=== PATIENT | male | born 1945 | race Caucasian/White ===

== ENCOUNTER → 2023-01-14 | Outpatient (CLI) | payer MEDICARE, OTHER | END | disposition home or self-care (01) | LOC: RESCLI 08:33 | PROVIDERS: ATTEND Family Medicine | DX: G44.1 Vascular headache, not elsewhere classified (principal); I63.9 Cerebral infarction, unspecified; M54.12 Radiculopathy, cervical region; I48.91 Unspecified atrial fibrillation; K59.04 Chronic idiopathic constipation; I10 Essential (primary) hypertension; K21.9 Gastro-esophageal reflux disease without esophagitis; Z79.01 Long term (current) use of anticoagulants; Z79.899 Other long term (current) drug therapy ==